=== PATIENT | male | born 1995 | race Caucasian/White ===

== ENCOUNTER 2017-01-20 13:30 | Outpatient (CLI) | payer OTHER ==
[~2017-01-20] VITALS: Ht 188 cm; Wt 72.6 kg
[~2017-01-20 13:30] MED LIST: OXYC-12 PO
== END 2017-01-20 13:33 ==
LOC: PREOP 13:30
PROVIDERS: ATTEND Surgery
DX: Z01.818 Encounter for other preprocedural examination (principal); K62.5 Hemorrhage of anus and rectum

== ENCOUNTER 2017-01-23 09:51 | Day surgery (SDC) | payer OTHER ==
[~2017-01-23] VITALS: Ht 188 cm; Wt 72.6 kg
--- OUTSIDE RECORDS SUMMARY | 2017-01-23 09:55 | XMS REPORT | Continuity of Care Document ---
Author Author [facility] Organization [facility] Address Unknown Phone Unavailable Care Team Providers Care Shoe Salesperson Name Role Phone MAX HENNING MD PCP Insurance Providers Payer Name Policy Number Subscriber Name Relationship [facility] [id number] Janis Bradshaw 20 Mother Enter Insurance Name [id number] Alexia Bradshaw 19 Self / Same As Patient Advance Directives Directive Response Recorded Date/Time Advance Directives No 01/20/17 1:20pm Organ Donor No 01/20/17 1:20pm Resuscitation Status Full Code 01/20/17 1:20pm Problems No problem information available. Medications No known medications. Social History Social History Problem Response Recorded Date/Time Alcohol Use Denies Use 01/20/2017 1:20pm Recreational Drug Use No 01/20/2017 1:20pm Recent Foreign Travel No 01/20/2017 1:21pm Recent Infectious Disease Exposure No 01/20/2017 1:21pm Smoking Status Never a Smoker 01/20/2017 1:20pm Recent Hopitalizations No 01/20/2017 1:20pm Query Response Start Date Stop Date Smoking Status Never a Smoker Hospital Discharge Instructions No hospital discharge instructions. Plan of Care Discharge Date 01/20/17 1:33pm Prescriptions See Medication Section Functional Status No functional status results. Allergies, Adverse Reactions, Alerts No known allergies. Immunizations No immunization records. Vital Signs Acute Vital Signs Vital Response Date/Time Height (Feet) 6 feet 01/20/2017 1:20pm Height (Inches) 2.00 inches 01/20/2017 1:20pm Height (Calculated Centimeters) 187.512591 cm 01/20/2017 1:20pm Weight (Pounds) 160 pounds 01/20/2017 1:20pm Weight (Ounces) 0.0 oz 01/20/2017 1:20pm Weight (Calculated Grams) 60193.78 gm 01/20/2017 1:20pm Weight (Calculated Kilograms) 72.468377 kilograms 01/20/2017 1:20pm Calculated BMI 20.5 01/20/2017 1:20pm Results No known relevant diagnostic tests, laboratory data and/or discharge summary. Procedures No known history of procedures. Encounters Encounter Location Arrival/Admit Date Discharge/Depart Date Attending Provider Departed Clinic [facility] 01/20/17 1:30pm 01/20/17 1: 33pm NEFTALY SYKES MD
--- OUTSIDE RECORDS SUMMARY | 2017-01-23 09:55 | XMS REPORT | Continuity of Care Document ---
Author Author [facility] Organization [facility] Address Unknown Phone Unavailable Care Team Providers Care Training And Documentation Specialist Name Role Phone MAX HENNING MD PCP Insurance Providers Payer Name Policy Number Subscriber Name Relationship [facility] [id number] Janis Bradshaw 20 Mother Enter Insurance Name [id number] Alexia Bradshaw 19 Self / Same As [...] 2.00 inches 01/20/2017 1:20pm Height (Calculated Centimeters) 187.981024 cm 01/20/2017 1:20pm Weight (Pounds) 160 pounds 01/20/2017 1:20pm Weight (Ounces) 0.0 oz 01/20/2017 1:20pm Weight (Calculated Grams) 58074.78 gm 01/20/2017 1:20pm Weight (Calculated Kilograms) 72.985194 kilograms 01/20/2017 1:20pm Calculated BMI 20.5 01/20/2017 1:20pm Results No known relevant diagnostic tests, laboratory data and/or discharge summary. Procedures No known history of procedures. Encounters Encounter Location Arrival/Admit Date Discharge/Depart Date Attending Provider Departed Clinic [facility] 01/20/17 1:30pm 01/20/17 1: 33pm NEFTALY SYKES MD
[2017-01-23] MEDS ORDERED: NS IV 500 ML 500 ML ONE (10:00)
--- NOTE | 2017-01-23 10:18 | Pre-Op Note & Conscious Sedat ---
Pre-Operative Progress Note H&P Reviewed The H&P was reviewed, patient examined and no changes noted. Date H&P Reviewed: Jan 23, 2017 Time H&P Reviewed: 10:18 Pre-Op Diagnosis: rectal bleeding Conscious Sedation Pre-Proced ASA Class: 2 Airway Mallampati Classification: ([place] appropriate class) I. II. III, IV Lungs Heart ASA score ASA 1: a normal healthy patient ASA 2: a patient with a mild systemic disease (mid diabetes, controlled hypertension, obesity ASA 3: a patient with a severe systemic disease that limits activity (angina , COPD, prior Myocardial infarction) ASA 4: a patient with an incapacitating disease that is a constant threat to life (CHF, renal failure) ASA 5: a moribund patient not expected to survive 24 hrs. (ruptured aneurysm) ASA 6: a declared brain patient whose organs are being harvested. For emergent operations, add the letter E after the classification Grade 1 Sedation Plan: Discussed options with patient/fam Note The patient is an appropriate candidate to undergo the planned procedure, sedation, and anesthesia. The patient immediately re-assessed prior to indication. NEFTALY SYKES MD Jan 23, 2017 10:18 am
[2017-01-23] MEDS ORDERED: fentaNYL INJECTION 100 MCG/2 ML AMP ONE ×2 (10:39→10:40)
[2017-01-23] MEDS ORDERED: MIDAZOLAM 2 MG/2 ML (VERSED) VIAL ONE ×5 (10:40)
[2017-01-23] MEDS: fentaNYL INJECTION 100 MCG/2 ML AMP IVP PRN ×4 (10:47→10:57)
[2017-01-23] MEDS: MIDAZOLAM 2 MG/2 ML (VERSED) VIAL IVP PRN ×5 (10:48→10:58)
[2017-01-23] MEDS ORDERED: NS IV 500 ML 500 ML IV PRN (11:00)
--- NOTE | 2017-01-23 11:07 | Discharge Inst-Simple/Standard ---
Discharge Inst-Standard Discharge Medications New, Converted or Re-Newed RX: Other Patient Instructions/Follow Up Plan of Care/Instructions/FU: follow up with his primary physician Activity as Tolerated: Yes Discharge Diet: No Restrictions NEFTALY SYKES MD Jan 23, 2017 11:07 am
--- NOTE | 2017-01-23 11:07 | Progress Note-Post Operative ---
Post-Operative Progess Note Pre-Operative Diagnosis rectal bleeding Post-Operative Diagnosis internal hemorrhoids. Mild inflammation of the distal rectum Post-Op Procedure Note Date of Procedure: Jan 23, 2017 Name of Procedure: colonoscopy with biopsy of rectal mucosa Anesthesia Type sedation Specimen(s) collected rectal mucosa NEFTALY SYKES MD Jan 23, 2017 11:06 am
[2017-01-23] MEDS ORDERED: FLUMAZENIL (ROMAZICON) 0.1 MG/ML 5 ML VIAL INJ PRN (11:15)
[2017-01-23] MEDS ORDERED: NALOXONE 0.4 MG/ML 1 ML (NARCAN) VIAL IVP PRN (11:15)
[2017-01-23 11:19] VITALS: BP 118/70
[2017-01-23 11:35] VITALS: BP 105/62
[2017-01-23 12:05] VITALS: BP 112/82
[2017-01-23 12:15] VITALS: BP 112/82
--- NOTE | 2017-01-23 12:40 | OPERATIVE REPORT ---
PROCEDURE PHYSICIAN: NEFTALY SYKES DATE OF PROCEDURE: 01/23/2017 PROCEDURE: Colonoscopy with rectal biopsy. SURGEON: Dr. Sykes. INDICATION FOR THE PROCEDURE: This young man came in for colonoscopy to evaluate intermittent rectal bleeding and occasional bloody diarrhea. He reported a positive family history of polyps in his maternal uncle. Informed consent was obtained after reviewing the procedure in detail. DESCRIPTION OF PROCEDURE: He was placed in left lateral decubitus position and his vital signs were monitored. Conscious sedation was achieved using Versed and fentanyl. Digital rectal examination was unremarkable. The colonoscope was then introduced into the rectum and advanced all the way up to the cecum. The scope was then withdrawn slowly and the mucosa examined in a systematic fashion. FINDINGS: 1. Internal hemorrhoids, the source of his bleeding. 2. Very mild inflammation of the distal rectum. Biopsy was obtained to rule out early proctitis. He tolerated the procedure well and was taken back to the nursing area in a stable condition. IMPRESSION: Rectal bleeding due to hemorrhoids. Job ID: [id number] Dictated Date: 01/23/2017 11:06:16 [employer] Date: 01/23/2017 12:31:04 / oumar LEPE
== END 2017-01-23 12:15 | disposition home or self-care (01) ==
LOC: ENDO 09:51
PROVIDERS: ATTEND Surgery
DX: K64.8 Other hemorrhoids (principal); K62.89 Other specified diseases of anus and rectum
CPT/HCPCS: 88305